=== PATIENT | female | born 1955 | race Caucasian/White ===

== ENCOUNTER → 2016-04-24 | Outpatient (CLI) | payer OTHER ==
--- NOTE | 2016-04-24 21:24 | WWHP ---
DATE OF SERVICE: 04/24/2016. CHIEF COMPLAINT: Patient is here for her routine gynecologic exam and mammogram. HPI: This is a 61-year-old G3, P2-0-1-2 with an LMP of approximately 1979. She is status post VANE in 1979 for benign reasons. She also had later BSO for benign reasons. She is without gynecologic complaints. PAST MEDICAL HISTORY: Hypothyroidism, chronic hypertension, seasonal allergies, anxiety, gastroesophageal reflux disease and elevated cholesterol. MEDICATIONS: 1. Hydrochlorothiazide 25 mg daily. 2. Levothyroxine 75 mcg daily. 3. Nexium 40 mg daily. 4. Fluoxetine 20 mg b.i.d. 5. Atorvastatin 40 mg q.h.s. 6. Lorazepam 0.5 mg q.h.s. 7. Aspirin 81 mg daily. 8. Vitamin D 1000 units daily. ALLERGIES: No known drug allergies. PAST SURGICAL HISTORY: VANE around 1979 later BSO in 1989. She also had about 3 other laparotomies for ovarian cysts which were benign. She also appendectomy done at one of these laparotomies. Also hernia repair in the past, colonoscopy with upper endoscopy around 2012. Past OB history: 2 vaginal deliveries and one spontaneous . Past [employer] history: She was once told she had HPV and this was detected on a Pap smear. This was approximately 1996. She had no other history of STDs and did have a long history of ovarian cysts and is status post VANE and later BSO. SOCIAL HISTORY: She quit smoking in her 30s. She denies alcohol and drug use. She has been since 2004 and this is her third marriage. She does not work outside the home at this time. FAMILY HISTORY: Mother had breast cancer and lung cancer. Father had lung cancer. Grandmother had gastric cancer. Mother also had heart disease. REVIEW OF SYSTEMS: She has lost about 18 pounds with diet and exercise and goes to weight watchers. She denies respiratory, cardiac, or GI problems. PHYSICAL EXAM: Blood pressure 111/76. Height 5 feet 0 inches. Weight 174 pounds. Temperature 97.6, pulse 72. This a well-developed, well-nourished white female who is alert and oriented x3 in no acute distress. HEENT is within normal limits. NECK: Supple without mass or thyromegaly. CHEST AND LUNGS: Clear to auscultation. HEART: Regular rate and rhythm. Breasts are without mass or discharge. Axillary exam is negative for adenopathy. BACK: Negative for CVA tenderness. ABDOMEN: Soft and there is minimal right lower quadrant tenderness. The patient states that area has always been tender for many years. She believes she had a mesh placed in that area for hernia. There are no palpable masses. PELVIC EXAM: External genitalia reveals mild to moderate atrophy without lesions. Vagina reveals mild to moderate atrophy without lesions. There is no evidence of prolapse. Bimanual exam is negative for mass or tenderness. Rectovaginal exam negative for mass or tenderness and is negative for occult blood. EXTREMITIES: Nontender. IMPRESSION: 1. A 61-year-old menopausal female, status post total abdominal hysterectomy and later BSO for benign reasons with normal gynecologic exam. 2. Minimal right lower quadrant tenderness, which has been there for many years according to the patient with no other significant physical findings. With her history of numerous surgeries and hernia repair, this may be related to some scar tissue. There are no palpable masses on exam. PLAN: 1. Pap smears have been discontinued. 2. Self-breast examination was discussed. 3. Mammogram will be done today. 4. Osteoporosis prevention was discussed. I have recommended bone density screening. She thinks she may have had this done in the past and will be checking with Dr. Toussaint. If this has not been done or if it has been many years, she will have this done next year when she returns. 5. She was instructed to call if she is having worsening right lower quadrant pains or tenderness. 6. She will return in one year.
--- NOTE | 2016-04-25 08:02 | MM ---
Reason for exam: screening (asymptomatic). Last mammogram was performed 3 years and 3 months ago. History: Patient is postmenopausal. Family history of breast cancer in mother. Physical Findings: A clinical breast exam by your physician is recommended on an annual basis and results should be correlated with mammographic findings. MG Screening Mammo w CAD Bilateral CC and MLO view(s) were taken. Prior study comparison: January 27, 2013, bilateral digital screening mammo w/CAD. December 10, 2006, mammogram, performed at [facility]. The breast tissue is almost entirely fat. Finding: There are typically benign round calcifications in the right breast. There is no discrete abnormality. ASSESSMENT: Negative, BI-RAD 1 RECOMMENDATION: Routine screening mammogram of both breasts in 1 year.
== END | disposition home or self-care (01) ==
LOC: WWCWWP 10:17
PROVIDERS: ATTEND Obstetrics & Gynecology
DX: Z12.31 Encounter for screening mammogram for malignant neoplasm of breast (principal)

== ENCOUNTER → 2017-09-11 | Outpatient (CLI) | payer OTHER ==
--- NOTE | 2017-09-13 08:58 | MM ---
Reason for exam: screening (asymptomatic). Last mammogram was performed 1 year and 5 months ago. History: Patient is postmenopausal. Family history of breast cancer in mother. Physical Findings: A clinical breast exam by your physician is recommended on an annual basis and results should be correlated with mammographic findings. MG Screening Mammo w CAD Bilateral CC and MLO view(s) were taken. Prior study comparison: April 24, 2016, bilateral MG screening mammo w CAD. January 27, 2013, bilateral digital screening mammo w/CAD. There are scattered fibroglandular densities. No suspicious abnormality. No significant changes when compared with prior studies. ASSESSMENT: Negative, BI-RAD 1 RECOMMENDATION: Routine screening mammogram of both breasts in 1 year.
== END | disposition home or self-care (01) ==
LOC: RADMAMWWP 16:14
PROVIDERS: ATTEND Family Medicine
DX: Z12.31 Encounter for screening mammogram for malignant neoplasm of breast (principal)
CPT/HCPCS: 77067

== ENCOUNTER → 2017-09-26 | Outpatient (CLI) | payer OTHER ==
--- NOTE | 2017-09-26 11:20 | US ---
EXAMINATION TYPE: US abdomen complete DATE OF EXAM: 09/26/2017 COMPARISON: None CLINICAL HISTORY: R10.9 ABD.PAIN. epigastric pain, NPO EXAM MEASUREMENTS: Liver Length: 13.7 cm Gallbladder Wall: 0.2 cm CBD: 0.4 cm CHD: 0.4 cm Spleen: 9.7 cm Right Kidney: 8.9 x 5.0 x 4.9 cm Left Kidney: 9.6 x 5.2 x 5.3 cm Pancreas: Unremarkable Liver: Echogenic and slightly heterogenous. This most commonly relates to hepatic steatosis and limi ts evaluation for underlying hepatic masses Gallbladder: wnl Evidence for sonographic León's sign: neg CBD: wnl CHD: wnl Spleen: wnl Right Kidney: wnl Left Kidney: wnl Upper IVC: wnl Abd Aorta: Portions obscured by overlying bowel gas. Aorta visualized appears wnl The intrahepatic portion of the IVC and proximal abdominal aorta are within normal limits. There is no evidence of cholelithiasis. Common bile duct is unremarkable. The visualized portions of the nicholas creas are homogenous. The spleen is unremarkable. Kidneys are symmetric and free of hydronephrosis. No renal lesions are seen. IMPRESSION: 1. No sonographic evidence of cholelithiasis or acute cholecystitis. 2. Sonographic findings most commonly related to hepatic steatosis. Correlate with liver function mariusz ts.
== END | disposition home or self-care (01) ==
LOC: RADUSWWP 09:05
PROVIDERS: ATTEND Family Medicine
DX: R10.9 Unspecified abdominal pain (principal)
CPT/HCPCS: 76700

== ENCOUNTER → 2017-10-24 | Outpatient (CLI) | payer OTHER ==
--- NOTE | 2017-10-24 10:23 | NM ---
EXAMINATION TYPE: NM hepatobiliary w EF DATE OF EXAM: 10/24/2017 COMPARISON: Prior exam 03/23/2014 HISTORY: Right upper quadrant pain TECHNIQUE: After the intravenous administration of 5.03 mCi Tc 99m Mebrofenin hepatobiliary scintigra phy is performed. Immediate images post injection. FINDINGS: There is satisfactory initial accumulation of tracer by the liver. The gallbladder is visualized wit hin 12 minutes. The small bowel activity is noted within 30 minutes. At one hour 8 ounces of oral e nsure plus is given to mimic CCK and gallbladder ejection fraction is calculated at 42 %, in the norm al range. Therefore there is no scintigraphic evidence of cystic or common bile duct obstruction to suggest acute cholecystitis or gallbladder dyskinesia. IMPRESSION: Exam is within normal limits.
== END | disposition home or self-care (01) ==
LOC: RADNMMAIN 06:38
PROVIDERS: ATTEND Family Medicine
DX: R10.11 Right upper quadrant pain (principal)
CPT/HCPCS: 78226; A9537

== ENCOUNTER 2017-12-13 09:48 | Day surgery (SDC) | payer OTHER ==
[2017-12-11 11:40] VITALS: BMI 35.9
[~2017-12-13 09:48] MED LIST: LACTATED RINGERS 1,000 ML IV SCH; LIDOCAINE 1% 20 ML VIAL (10MG/ML) FOR IV START INTRADERMA PRN
[2017-12-13 10:29] VITALS: RESP 16; TEMP 98.8
[2017-12-13] MEDS ORDERED: LIDOCAINE 1% INJ 10MG/ML (20 ML MDV) ONE (10:35)
[2017-12-13] MEDS ORDERED: PROPOFOL 10 MG/ML 20 ML VIAL IV ONE (10:35)
--- NOTE | 2017-12-13 10:45 | P.GSHP ---
History of Present Illness H&P Date: 12/13/17 CHIEF COMPLAINT: GERD and colon screen HISTORY OF PRESENT ILLNESS: The patient is a 62-year-old female who presents with gastroesophageal reflux disease and need for colon screen. Upper and lower endoscopy were offered for further evaluation and management. PAST MEDICAL HISTORY: Please see list. PAST SURGICAL HISTORY: Please see list. MEDICATIONS: Please see list. ALLERGIES: Please see list. SOCIAL HISTORY: No illicit drug use FAMILY HISTORY: No reports of Crohn disease or ulcerative colitis. REVIEW OF ORGAN SYSTEMS: CONSTITUTIONAL: No reports of fevers or chills. GI: Denies any blood in stools or constipation. PHYSICAL EXAM: VITAL SIGNS: Stable GENERAL: Well-developed pleasant in no acute distress. HEENT: No scleral icterus. Extraocular movements grossly intact. Moist buccal mucosa. NECK: Supple without lymphadenopathy. CHEST: Unlabored respirations. Equal bilateral excursions. CARDIOVASCULAR: Regular rate and rhythm. Distal 2+ pulses. ABDOMEN: Soft, nondistended. MUSCULOSKELETAL: No clubbing, cyanosis, or edema. ASSESSMENT: 1. Gastroesophageal reflux disease 2. Colon screen. PLAN: 1. Recommend proceeding with an upper and lower endoscopy Past Medical History Past Medical History: GERD/Reflux, Hyperlipidemia, Hypertension, Sleep Apnea/ CPAP/BIPAP, Thyroid Disorder History of Any Multi-Drug Resistant Organisms: None Reported Past Surgical History: Hernia Repair Additional Past Surgical History / Comment(s): OVARIAN CYSTECTOMY. COLONOSCOPY/ EGD Past Anesthesia/Blood Transfusion Reactions: Postoperative Nausea & Vomiting ( PONV) Smoking Status: Former smoker - Past Family History Mother Family Medical History: Cancer Father Family Medical History: Cancer Medications and Allergies Home Medications Medication Instructions Recorded Confirmed Type Aspirin [Adult Low Dose Aspirin EC] 81 mg PO HS 12/11/17 12/11/17 History Atorvastatin [Lipitor] 40 mg PO HS 12/11/17 12/11/17 History Cholecalciferol [Vitamin D3] 1,000 unit PO DAILY 12/11/17 12/11/17 History FLUoxetine HCL [PROzac] 20 mg PO BID 12/11/17 12/11/17 History Fish Oil/Dha/Epa [Fish Oil 1,200 1 each PO DAILY 12/11/17 12/11/17 History mg Fish Oil] Hydrochlorothiazide [Hydrodiuril] 25 mg PO DAILY 12/11/17 12/11/17 History LORazepam [Ativan] 0.5 mg PO HS 12/11/17 12/11/17 History Levothyroxine Sodium [Tirosint] 75 mcg PO DAILY 12/11/17 12/11/17 History Pantoprazole Sodium [Protonix] 40 mg PO DAILY 12/11/17 12/11/17 History Allergies Allergy/AdvReac Type Severity Reaction Status Date / Time No Known Allergies Allergy Verified 12/11/17 11:22 Surgical - Exam Vital Signs Temp Pulse Resp BP Pulse Ox 98.8 F 79 16 149/83 96 12/13/17 10:19 12/13/17 10:19 12/13/17 10:19 12/13/17 10:19 12/13/17 10:19
--- NOTE | 2017-12-13 11:19 | P.PCN ---
Date of Procedure: 12/13/17 Description of Procedure: PREOPERATIVE DIAGNOSIS: Colonoscopy screening. POSTOPERATIVE DIAGNOSIS: Colonoscopy screening. OPERATION: Colonoscopy to the ileocecal valve and appendiceal orifice. Colonoscopy with random cold forceps biopsies. SURGEON: Jacki Sharpe MD. ANESTHESIA: MAC. INDICATIONS: The patient is a 62-year-old female who presents for colonoscopy screening. Last colonoscopy over 10 years ago. Benefits and risks were described and informed consent was obtained. DESCRIPTION OF PROCEDURE: The patient had undergone Gatorade, MiraLAX and Dulcolax prep. She had been brought into the operating room and laid in the left lateral decubitus position. After adequate intravenous sedation, the rectum was examined with 2% lidocaine jelly. No external hemorrhoids were encountered. The rectal tone was within normal limits. No lesions were palpated in the rectal vault. An Olympus colonoscope was advanced until the ileocecal valve and appendiceal orifice were clearly viewed. The prep was excellent with clear visualization of the mucosal folds. The scope was removed with visualization of each mucosal fold. No scattered diverticulosis was encountered. No colonic polyps were found. Random biopsies were obtained for collagenous colitis. Retroflexion of the scope demonstrated no internal hemorrhoids. The colon was desufflated. The patient had tolerated the procedure well. Withdrawal time was over 6 minutes. FINDINGS: No internal hemorrhoids Random biopsies were obtained for collagenous colitis. No external prolapsed hemorrhoids. No arteriovenous malformations. No adenomatous polyps. RECOMMENDATIONS: Lower endoscopy in 10 years, 2027
--- NOTE | 2017-12-13 11:21 | P.PCN ---
Date of Procedure: 12/13/17 Description of Procedure: PREOPERATIVE DIAGNOSIS: Gastroesophageal reflux disease. H. pylori gastritis POSTOPERATIVE DIAGNOSIS: Gastroesophageal reflux disease. H. pylori gastritis OPERATION: Esophagogastroduodenoscopy with biopsies along antrum. SURGEON: Jacki Sharpe MD ANESTHESIA: MAC. INDICATIONS: The patient is a 62-year-old female who presents with a history of reflux disease. Benefits and risks of the procedure were described. Informed consent was obtained. DESCRIPTION: The patient was brought into the endoscopy suite and laid in the left lateral decubitus position. An Olympus gastroscope was passed along the posterior oropharynx down to the distal esophagus where the squamocolumnar junction was encountered at 36 cm from the incisors. The stomach was entered and no bile reflux was found. Additional findings are listed below. Biopsies with cold forceps were obtained of the antrum. The first through third portion of the duodenum was examined and unremarkable. Retroflexion of the scope confirmed Hill grade 2 lower esophageal valve. The squamocolumnar junction demonstrated LA grade A erosive esophagitis. The stomach was desufflated. The patient tolerated the procedure well. FINDINGS: Squamocolumnar junction 36 cm from the incisors. Diaphragmatic hiatus at 36 cm. Hill grade 2 lower esophageal valve. LA grade A erosive esophagitis. No active duodenitis. Chronic gastritis RECOMMENDATIONS: Upper endoscopy as needed. Plan - Discharge Summary New Discharge Prescriptions: No Action Cholecalciferol [Vitamin D3] 1,000 unit PO DAILY Atorvastatin [Lipitor] 40 mg PO HS Aspirin [Adult Low Dose Aspirin EC] 81 mg PO HS Pantoprazole Sodium [Protonix] 40 mg PO DAILY Levothyroxine Sodium [Tirosint] 75 mcg PO DAILY LORazepam [Ativan] 0.5 mg PO HS Hydrochlorothiazide [Hydrodiuril] 25 mg PO DAILY FLUoxetine HCL [PROzac] 20 mg PO BID Fish Oil/Dha/Epa [Fish Oil 1,200 mg Fish Oil] 1 each PO DAILY Discharge Medication List Aspirin [Adult Low Dose Aspirin EC] 81 mg PO HS 12/11/17 [History] Atorvastatin [Lipitor] 40 mg PO HS 12/11/17 [History] Cholecalciferol [Vitamin D3] 1,000 unit PO DAILY 12/11/17 [History] FLUoxetine HCL [PROzac] 20 mg PO BID 12/11/17 [History] Fish Oil/Dha/Epa [Fish Oil 1,200 mg Fish Oil] 1 each PO DAILY 12/11/17 [History] Hydrochlorothiazide [Hydrodiuril] 25 mg PO DAILY 12/11/17 [History] LORazepam [Ativan] 0.5 mg PO HS 12/11/17 [History] Levothyroxine Sodium [Tirosint] 75 mcg PO DAILY 12/11/17 [History] Pantoprazole Sodium [Protonix] 40 mg PO DAILY 12/11/17 [History]
[2017-12-13 11:27] VITALS: BP 139/74; PULSE 66
== END 2017-12-13 12:07 | disposition home or self-care (01) ==
LOC: ORWHC2ENDO 09:48
PROVIDERS: ATTEND Surgery Plastic and Reconstructive Surgery
DX: Z12.11 Encounter for screening for malignant neoplasm of colon (principal); K29.50 Unspecified chronic gastritis without bleeding; E78.5 Hyperlipidemia, unspecified; K21.0 Gastro-esophageal reflux disease with esophagitis; I10 Essential (primary) hypertension; E07.9 Disorder of thyroid, unspecified; Z87.891 Personal history of nicotine dependence; Z79.82 Long term (current) use of aspirin; Z79.899 Other long term (current) drug therapy; Z79.890 Hormone replacement therapy; G47.33 Obstructive sleep apnea (adult) (pediatric); Z99.89 Dependence on other enabling machines and devices
CPT/HCPCS: 88305; 45380; 43239; J2001; J2704

== ENCOUNTER → 2017-12-16 | Outpatient (CLI) | payer OTHER ==
--- NOTE | 2017-12-16 15:44 | CT ---
EXAMINATION TYPE: CT abdomen pelvis w con DATE OF EXAM: 12/16/2017 HISTORY: Patient complains of epigastric pain, diarrhea, and nausea. Diverticulitis per order. CT DLP: 1486mGycm Automated Exposure Control for Dose Reduction was Utilized. CONTRAST: CT scan of the abdomen and pelvis is performed with IV Contrast, patient injected with 100 mL of Isov ue 300. COMPARISON: None FINDINGS: LUNG BASES: No significant abnormality is appreciated. LIVER/GB: There are 2 subcentimeter low dense lesions scattered throughout the liver that are too sma ll to further characterize per presumed benign. PANCREAS: No significant abnormality is seen. SPLEEN: Small splenule is seen splenic hilum coronal image 65. ADRENALS: No significant abnormality is seen. KIDNEYS: No significant abnormality is seen. BOWEL: Oral contrast reaches level of the hepatic flexure. There is no suspicious small or large helen l dilatation seen mild wall thickening throughout the sigmoid colon is present through the rectum. Th is is strongly favor product of nondistention but a mild colitis should be excluded clinically. No si gnificant diverticulosis or acute diverticulitis identified. UTERUS/ADNEXA: Uterus is surgically absent or markedly atrophic. LYMPH NODES: No greater than 1cm abdominal or pelvic lymph nodes are appreciated. OSSEOUS STRUCTURES: Moderate spurring in the visualized mid thoracic spine. OTHER: Mild calcified plaque of aorta. IMPRESSION: No bowel obstruction is seen. No CT evidence for significant diverticulosis or acute dive rticulitis.
== END | disposition home or self-care (01) ==
LOC: RADCTMAIN 12:57
PROVIDERS: ATTEND Surgery Plastic and Reconstructive Surgery
DX: K57.32 Diverticulitis of large intestine without perforation or abscess without bleeding (principal)
CPT/HCPCS: 74177; Q9967

== ENCOUNTER → 2018-07-16 | Outpatient (CLI) | payer OTHER ==
--- NOTE | 2018-07-16 10:42 | XR ---
EXAMINATION TYPE: XR abdomen 1V DATE OF EXAM: 07/16/2018 10:36 AM CLINICAL HISTORY: Lower abdominal pain with right flank pain. TECHNIQUE: Two supine KUB images of the abdomen are obtained. COMPARISON: CT abdomen and pelvis December 16, 2017. FINDINGS: Scattered gas is seen in non-distended small bowel loops. Gas and fecal material is seen in non-distended colon. Scattered pelvic phleboliths are redemonstrated bilaterally. There is transitio nal-type vertebra lumbosacral junction is redemonstrated. No definitive nephrolithiasis. Lung bases a re clear. Mild multilevel spurring in the spine is present. IMPRESSION: Overall nonobstructive bowel gas pattern. No definitive nephrolithiasis.
== END | disposition home or self-care (01) ==
LOC: RADXRYALE 10:26
PROVIDERS: ATTEND Physician Assistant Medical
DX: M54.5 Low back pain (principal); R10.817 Generalized abdominal tenderness
CPT/HCPCS: 74018

== ENCOUNTER → 2018-08-20 | Outpatient (CLI) | payer OTHER ==
--- NOTE | 2018-08-20 12:23 | XR ---
EXAMINATION TYPE: XR lumbosacral spine min 4V DATE OF EXAM: 08/20/2018 COMPARISON: NONE HISTORY: 63-year-old female low back pain TECHNIQUE: 5 views FINDINGS: Facet arthropathy lower lumbar spine. Mild to moderate disc height loss at L5-S1 and mild d irect remainder of the lumbar spine. Vertebral body heights are preserved and alignment is maintained . IMPRESSION: 1. Mild multilevel degenerative disc disease with more mild to moderate disc height loss at L5-S1. 2. Facet arthropathy lower lumbar spine. 3. No vertebral compression collapse or malalignment.
== END | disposition home or self-care (01) ==
LOC: RADXRYALE 10:29
PROVIDERS: ATTEND Physician Assistant Medical
DX: M51.37 Other intervertebral disc degeneration, lumbosacral region (principal); M46.96 Unspecified inflammatory spondylopathy, lumbar region
CPT/HCPCS: 72110

== ENCOUNTER → 2019-03-09 | Outpatient (CLI) | payer OTHER ==
--- NOTE | 2019-03-10 08:33 | USB ---
Reason for exam: clinical finding. History: Patient is postmenopausal. Family history of breast cancer in mother. US Breast Limited LT Left limited breast ultrasound including focal area of concern, retroareolar and axilla demonstrates no cystic or solid lesion seen. No suspicious sonographic finding. These results were verbally communicated with the patient and result sheet given to the patient on 03/09/19. ASSESSMENT: Negative, BI-RAD 1 RECOMMENDATION: Routine screening mammogram of both breasts in 1 year.
== END | disposition home or self-care (01) ==
LOC: RADMAMWWP 13:37
PROVIDERS: ATTEND Family Medicine
DX: N64.4 Mastodynia (principal)

== ENCOUNTER → 2019-03-09 | Outpatient (CLI) | payer OTHER ==
--- NOTE | 2019-03-09 15:25 | US ---
EXAMINATION TYPE: US thyroid st tissue head/neck DATE OF EXAM: 03/09/2019 COMPARISON: NONE CLINICAL HISTORY: R499 E0.9. has been on thyroid meds, hoarse throat GLAND SIZE: Right Lobe: 3.3 x 0.8 x 1.3 cm Overall Parenchyma: homogenous Left Lobe: 2.7 x 1.3 x 0.9 cm Overall Parenchyma: homogeneous Isthmus Thickness: 0.4 cm NODULES RIGHT: # of nodules measured on right: 0 LEFT: # of nodules measured on left: 0 ISTHMUS: # of nodules measured in the isthmus: 0 Bilateral neck scanned, no evidence of lymphadenopathy. IMPRESSION: Atrophic but homogeneous thyroid gland. No focal nodule.
--- NOTE | 2019-03-10 08:30 | MM ---
Reason for exam: additional evaluation requested from prior study. Last mammogram was performed 1 year and 6 months ago. History: Patient is postmenopausal. Family history of breast cancer in mother. Physical Findings: Nurse did not find any significant physical abnormalities on exam. MG 3D Diag Mammo W/Cad CARMENZA Bilateral CC and MLO view(s) were taken. Prior study comparison: September 11, 2017, bilateral MG screening mammo w CAD. April 24, 2016, bilateral MG screening mammo w CAD. There are scattered fibroglandular densities. No suspicious abnormality. No significant new findings when compared with previous films. These results were verbally communicated with the patient and result sheet given to the patient on 03/09/19. ASSESSMENT: Negative, BI-RAD 1 RECOMMENDATION: Routine screening mammogram of both breasts in 1 year.
== END | disposition home or self-care (01) ==
LOC: RADUSWWP 13:30
PROVIDERS: ATTEND Physician Assistant Medical
DX: Z12.31 Encounter for screening mammogram for malignant neoplasm of breast (principal); E03.4 Atrophy of thyroid (acquired); R49.9 Unspecified voice and resonance disorder
CPT/HCPCS: 76536; 77062; 77066

== ENCOUNTER → 2020-02-11 | Outpatient (CLI) | payer OTHER ==
--- NOTE | 2020-02-11 16:14 | XR ---
EXAMINATION TYPE: XR Hip Complete RT DATE OF EXAM: 02/11/2020 CLINICAL HISTORY: Right hip pain for 2 months. TECHNIQUE: AP and frogleg views of the right hip are obtained. COMPARISON: CT abdomen and pelvis December 16, 2017. FINDINGS: There is no acute fracture/dislocation evident in the right hip. Moderate axial joint spac e loss in the right hip with mild to moderate acetabular spurring is redemonstrated. Scattered small pelvic phleboliths incidentally noted. IMPRESSION: As above. No significant interval change or progression.
== END | disposition home or self-care (01) ==
LOC: RADXRYALE 15:46
PROVIDERS: ATTEND Physician Assistant
DX: M25.751 Osteophyte, right hip (principal); M25.851 Other specified joint disorders, right hip
CPT/HCPCS: 73502

== ENCOUNTER → 2021-06-02 | Outpatient (CLI) | payer MEDICARE, OTHER ==
[~2021-06-02] MED LIST changes: +BEBTELOVIMAB (EUA) 175 MG/2 ML VIAL IV ONE; -LACTATED RINGERS 1,000 ML IV SCH; -LIDOCAINE 1% 20 ML VIAL (10MG/ML) FOR IV START INTRADERMA PRN; +SODIUM CHLORIDE 0.9% 500 ML 500 ML in EMPTY BAG 1 BAG IV PRN
[2021-06-02 14:11] VITALS: RESP 16; TEMP 98.1
[2021-06-02 15:12] VITALS: BP 127/75; PULSE 74
== END | disposition home or self-care (01) ==
LOC: PROCWHC3 13:39
PROVIDERS: ATTEND Family Medicine
DX: U07.1 COVID-19 (principal)
CPT/HCPCS: Q0222; M0222; 96374

== ENCOUNTER → 2021-12-27 | Outpatient (CLI) | payer MEDICARE ==
--- NOTE | 2021-12-28 08:44 | MM ---
Reason for Exam: Screening (asymptomatic). Last screening mammogram was performed 12 month(s) ago. Patient History: Menarche at age 12. First Full-Term at age 20. Left ovary removed at age 23. Right ovary removed at age 23. Hysterectomy at age 23. Postmenopausal. Estrogen for 2 months. Patient used Progesterone for 2 years. Patient used Hormonal Contraceptives for 2 years. Maternal aunt had breast cancer. Mother had breast cancer. Risk Values: Usmi 5 year model risk: 3.4%. NCI Lifetime model risk: 12.4%. Prior Study Comparison: 09/11/2017 Bilateral Screening Mammogram, [facility]. 03/09/2019 Bilateral Diagnostic Mammogram, [facility]. 12/27/2020 Bilateral Screening Mammogram, [facility]. Tissue Density: There are scattered fibroglandular densities. Findings: Analyzed By CAD. There is no suspicious group of microcalcifications or new suspicious mass in either breast. No significant change from prior exams. Overall Assessment: Negative, BI-RAD 1 Management: Screening Mammogram of both breasts in 1 year. A clinical breast exam by your physician is recommended on an annual basis and results should be correlated with mammographic findings. Electronically signed and approved by: Dank Ramos D.O.
== END | disposition home or self-care (01) ==
LOC: RADMAMWWP 14:05
PROVIDERS: ATTEND Family Medicine
DX: Z12.31 Encounter for screening mammogram for malignant neoplasm of breast (principal)
CPT/HCPCS: 77063; 77067

== ENCOUNTER → 2022-01-05 | Outpatient (CLI) | payer MEDICARE ==
--- NOTE | 2022-01-05 15:07 | US ---
EXAMINATION TYPE: US kidneys/renal and bladder DATE OF EXAM: 01/05/2022 COMPARISON: NONE CLINICAL HISTORY: PAINFUL MICTURATION R30.9. Hematuria. EXAM MEASUREMENTS: Right Kidney: 9.6 x 5.2 x 4.4 cm Left Kidney: 9.2 x 5.6 x 5.2 cm Right Kidney: No hydronephrosis or masses seen Left Kidney: No hydronephrosis or masses seen Bladder: wnl Bilateral Jets seen: Yes There is no evidence for hydronephrosis at this point in time. No nephrolithiasis is seen. No kalani s are identified. The urinary bladder is anechoic. Bilateral ureteral jets are seen. IMPRESSION: No discrete abnormality is appreciated.
== END | disposition home or self-care (01) ==
LOC: RADUSWWP 14:07
PROVIDERS: ATTEND Family Medicine
DX: R30.9 Painful micturition, unspecified (principal)
CPT/HCPCS: 76770

== ENCOUNTER → 2023-02-12 | Outpatient (CLI) | payer MEDICARE ==
[2023-02-12 13:11] VITALS: BP 142/84; PULSE 77; RESP 17; TEMP 97.9
--- NOTE | 2023-02-12 13:52 | P.HPOB ---
History of Present Illness H&P Date: 02/12/23 Chief Complaint: The patient is here for her routine gynecologic exam and ma mmogram. This is a 67-year-old 012 with an LMP of 1979. She is status post VANE and later BSO for benign reasons. She thinks she has had about 3 or 4 urinary tract infections over the past year and she has an appointment to see Dr. Torres, the urologist. She has had some neurologic issues in the past. She is otherwise without complaints. Review of Systems She has been about 18 pounds over the past 6 years. She denies respiratory or cardiac problems. GI: She recently has had some intermittent loose stools. Past Medical History Past Medical History: GERD/Reflux, Hyperlipidemia, Hypertension, Thyroid Disorder Additional Past Medical History / Comment(s): Hypothyroidism, seasonal ALLERGIES. 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 She has no other history of STDs in the past. History of Any Multi-Drug Resistant Organisms: None Reported Past Surgical History: Hernia Repair, Hysterectomy Additional Past Surgical History / Comment(s): CYST ON OVARIES REMOVED. VANE in 1979 and BSO in 1989. Multiple laparotomies for ovarian cysts which were benign. Colonoscopy with upper endoscopy around 2012. Past Anesthesia/Blood Transfusion Reactions: No Reported Reaction Past Psychological History: Anxiety (PHQ 2 score was 1 which was her at low risk for significant depression at this time.) Smoking Status: Former smoker Past Alcohol Use History: None Reported Additional Past Alcohol Use History / Comment(s): Quit smoking around 1984. Past Drug Use History: None Reported Additional History: She is been since 2020 and this is her fourth marriage. - Past Family History Mother Family Medical History: Cancer Additional Family Medical History / Comment(s): Breast and lung cancer. Heart disease. Father Family Medical History: Cancer Additional Family Medical History / Comment(s): Lungs cancer. Medications and Allergies Home Medications Medication Instructions Recorded Confirmed Type Aspirin [Adult Low Dose Aspirin EC] 81 mg PO HS 12/11/17 02/12/23 History Atorvastatin [Lipitor] 40 mg PO HS 12/11/17 02/12/23 History Cholecalciferol [Vitamin D3] 1,000 unit PO DAILY 12/11/17 02/12/23 History FLUoxetine HCL [PROzac] 20 mg PO BID 12/11/17 02/12/23 History Fish Oil/Dha/Epa [Fish Oil 1,200 1 each PO DAILY 12/11/17 02/12/23 History mg Fish Oil] LORazepam [Ativan] 0.5 mg PO HS 12/11/17 02/12/23 History Levothyroxine Sodium [Tirosint] 75 mcg PO DAILY 12/11/17 02/12/23 History Pantoprazole Sodium [Protonix] 40 mg PO DAILY 12/11/17 02/12/23 History hydroCHLOROthiazide [Hydrodiuril] 25 mg PO DAILY 12/11/17 02/12/23 History Metoprolol Succinate [Metoprolol 25 mg PO DAILY 02/12/23 02/12/23 History Succinate ER] Allergies Allergy/AdvReac Type Severity Reaction Status Date / Time No Known Allergies Allergy Verified 02/12/23 12:50 Exam Vital Signs Temp Pulse Resp BP Pulse Ox 02/12/23 12:53 97.9 F 77 17 142/84 96 Intake and Output 02/11/23 02/12/23 02/12/23 22:59 06:59 14:59 Other: Weight 87.09 kg Height 5 feet 0 inches, weight 192 pounds, BMI 37.5. This is a well-developed well-nourished white female who is alert and oriented times 3 in no acute distress. HEENT: Within normal limits. NECK: Supple without mass or thyromegaly. CHEST AND LUNGS: Clear to auscultation. HEART: Regular rate and rhythm. BREASTS: Are without mass or discharge. AXILLARY EXAM: Negative for adenopathy. BACK: Negative for CVA tenderness. ABDOMEN: Soft, nontender, without palpable masses. PELVIC EXAM: External genitalia appears normal with mild atrophy. Vagina appears normal with mild atrophy. There is no evidence of prolapse. Bimanual examination is negative for mass or tenderness. RECTAL EXAM: Rectovaginal exam is negative for mass or tenderness and is negative for occult blood. EXTREMITIES: Nontender. IMPRESSION: 1. 67-year-old menopausal female status post VANE and later BSO for benign reasons, with normal gynecologic exam. 2. Frequent urinary tract infections during the past year. PLAN: 1. Pap smears have been discontinued. 2. Self breast awareness was discussed with the patient. We have also discussed symptoms associated with inflammatory breast cancer. 3. Screening mammogram will be done today. 4. Osteoporosis prevention was discussed. I have stressed the importance of adequate calcium, vitamin D and regular exercise. Recommended amounts of calcium and vitamin D were also discussed. She believes she had a bone density test done and she believes it was normal. She will check her records to see when this was last done. If it has been more than 5 years, have recommended that she repeat the bone density test. She can do it next year with her next well woman examination, if she is due for it. 5. She believes she may have had a colonoscopy done more recently in 2012. She will discuss this with her PCP to see when this is due, or if she continues and alternatives such as Cologuard. 6. We have had a long discussion regarding frequent urinary tract infections. We have discussed the importance of avoiding after sexual intercourse as well as trying to empty her bladder as completely as possible when she does void. We've discussed the importance of giving herself enough time and emptying by relaxing and not pushing. We have discussed other options if she continues to have recurrent urinary tract infections such as the use of vaginal estrogen cream. She will try to determine if her urinary tract infections are related to sexual intercourse. We also discussed the option of using a low-dose Macrodantin after intercourse as a preventative measure, if she continues to have recurrent urinary tract infections. She has an upcoming appointment with Dr. Torres, the urologist regarding these urinary tract infections. 7. She was advised to return in one year for her annual well woman exam.
--- NOTE | 2023-02-13 15:46 | MM ---
Reason for Exam: Screening (asymptomatic). Last mammogram was performed 1 year(s) and 2 month(s) ago. Patient History: Menarche at age 12. First Full-Term at age 20. Left ovary removed at age 23. Right ovary removed at age 23. Hysterectomy at age 23. Postmenopausal. Estrogen for 2 months. Patient used Progesterone for 2 years. Patient used Hormonal Contraceptives for 2 years. Maternal aunt had breast cancer. Mother had breast cancer. Risk Values: Sumi 5 year model risk: 3.4%. NCI Lifetime model risk: 12.0%. Prior Study Comparison: 03/09/2019 Bilateral Diagnostic Mammogram, [facility]. 12/27/2020 Bilateral Screening Mammogram, [facility]. 12/27/2021 Bilateral MG 3D screening mammo w/cad, [facility]. Tissue Density: There are scattered fibroglandular densities. Findings: Analyzed By CAD. Pattern appears symmetrical and stable. No significant interval change is evident. No suspicious groups of microcalcifications, spiculated or lobular masses, architectural distortion or other secondary signs of malignancy are mammographically apparent. Overall Assessment: Benign, BI-RAD 2 Management: Screening Mammogram of both breasts in 1 year. A negative mammogram report should not preclude additional follow up of suspicious palpable abnormalities. Patient should continue monthly self breast exam. A clinical breast exam by your physician is recommended on an annual basis and results should be correlated with mammographic findings. Electronically signed and approved by: Bernard Wagner D.O. Radiologis
== END ==
LOC: WWCWWP 12:32
PROVIDERS: ATTEND Obstetrics & Gynecology
DX: Z12.31 Encounter for screening mammogram for malignant neoplasm of breast (principal); K21.9 Gastro-esophageal reflux disease without esophagitis; E78.5 Hyperlipidemia, unspecified; I10 Essential (primary) hypertension; E03.9 Hypothyroidism, unspecified; F41.9 Anxiety disorder, unspecified; Z90.710 Acquired absence of both cervix and uterus; Z87.891 Personal history of nicotine dependence; Z79.890 Hormone replacement therapy; Z87.440 Personal history of urinary (tract) infections; Z90.722 Acquired absence of ovaries, bilateral; Z79.899 Other long term (current) drug therapy; Z79.82 Long term (current) use of aspirin
CPT/HCPCS: 77063; 77067

== ENCOUNTER → 2024-09-01 | Outpatient (CLI) | payer MEDICARE ==
--- NOTE | 2024-09-01 11:29 | MM ---
Reason for Exam: Screening (asymptomatic). Last mammogram was performed 1 year(s) and 7 month(s) ago. Patient History: Menarche at age 12. First Full-Term at age 20. Left ovary removed at age 23. Right ovary removed at age 23. Hysterectomy at age 23. Postmenopausal. Estrogen for 2 months. Patient used Progesterone for 2 years. Patient used Hormonal Contraceptives for 2 years. Mother had breast cancer. Risk Values: Sumi 5 year model risk: 3.5%. NCI Lifetime model risk: 11.0%. Prior Study Comparison: 12/27/2020 Bilateral Screening Mammogram, [facility]. 12/27/2021 Bilateral MG 3D screening mammo w/cad, [facility]. 02/12/2023 Bilateral MG 3D screening mammo w/cad, [facility]. Tissue Density: The breasts are almost entirely fatty. Findings: Analyzed By CAD. There is no suspicious group of microcalcifications or new suspicious mass in either breast. Overall Assessment: Negative, BI-RAD 1 Management: Screening Mammogram of both breasts in 1 year. Further clinical management of patient's intermittent bilateral breast tenderness. See note below in regards to the patient's increased 5 year Sumi score. Patient should continue monthly self-breast exams. A clinical breast exam by your physician is recommended on an annual basis. This exam should not preclude additional follow-up of suspicious palpable abnormalities. Note on Sumi scores and lifetime risk: 1. A Sumi score greater than 3% is considered moderate risk. If this is the case, consider specialist referral to assess eligibility for a risk reducing agent. 2. If overall lifetime risk for the development of breast cancer is 20% or higher, the patient may qualify for future screening with alternating mammogram and breast MRI. [facility], , 09/01/2024 11:26 AM. Electronically signed and approved by: Laly Thompson M.D. Radiologist
== END | disposition home or self-care (01) ==
LOC: RADMAMWWP 08:50
PROVIDERS: ATTEND Family Medicine
DX: Z12.31 Encounter for screening mammogram for malignant neoplasm of breast (principal); R92.313 Mammographic fatty tissue density, bilateral breasts; Z78.0 Asymptomatic menopausal state; Z92.0 Personal history of contraception; Z80.3 Family history of malignant neoplasm of breast
CPT/HCPCS: 77063; 77067

== ENCOUNTER 2024-09-03 13:10 | Emergency (ER) | payer MEDICARE ==
--- NOTE | 2024-09-03 15:07 | ED ---
GI Bleed HPI - General Chief complaint: GI Bleed Stated complaint: blood in stool Time Seen by Provider: 09/03/24 14:49 Source: patient, RN notes reviewed Mode of arrival: ambulatory Limitations: no limitations - History of Present Illness Initial comments: This is a 69-year-old female who presents to the emergency department for rectal bleeding. States that she was recently put on a prednisone taper for a possible muscle strain in her lower back and legs and is scheduled to take the last dose today. Yesterday she started developing diarrhea and then as the day progressed she had bright red blood mixed with her stool. States that she has had about 6 bowel movements with blood in her stool. She has minor cramping in her lower abdomen and feels the constant urge to have a bowel movement. Denies any nausea or vomiting. Not taking any blood thinners. Denies any history of rectal bleeding in the past. - Related Data Home Medications Medication Instructions Recorded Confirmed Aspirin [Adult Low Dose Aspirin EC] 81 mg PO HS 12/11/17 02/12/23 Atorvastatin [Lipitor] 40 mg PO HS 12/11/17 02/12/23 Cholecalciferol [Vitamin D3] 1,000 unit PO DAILY 12/11/17 02/12/23 FLUoxetine HCL [PROzac] 20 mg PO BID 12/11/17 02/12/23 Fish Oil/Dha/Epa [Fish Oil 1,200 1 each PO DAILY 12/11/17 02/12/23 mg Fish Oil] LORazepam [Ativan] 0.5 mg PO HS 12/11/17 02/12/23 Levothyroxine Sodium [Tirosint] 75 mcg PO DAILY 12/11/17 02/12/23 Pantoprazole Sodium [Protonix] 40 mg PO DAILY 12/11/17 02/12/23 hydroCHLOROthiazide [Hydrodiuril] 25 mg PO DAILY 12/11/17 02/12/23 Metoprolol Succinate [Metoprolol 25 mg PO DAILY 02/12/23 02/12/23 Succinate ER] Allergies Allergy/AdvReac Type Severity Reaction Status Date / Time No Known Allergies Allergy Verified 02/12/23 12:50 Review of Systems ROS Statement: Those systems with pertinent positive or pertinent negative responses have been documented in the HPI. ROS Other: All systems not noted in ROS Statement are negative. Past Medical History Past Medical History: GERD/Reflux, Hyperlipidemia, Hypertension, Thyroid Disorder Additional Past Medical History / Comment(s): Hypothyroidism, seasonal ALLERGIES. 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 She has no other history of STDs in the past. History of Any Multi-Drug Resistant Organisms: None Reported Past Surgical History: Hernia Repair, Hysterectomy Additional Past Surgical History / Comment(s): CYST ON OVARIES REMOVED. VANE in 1979 and BSO in 1989. Multiple laparotomies for ovarian cysts which were benign. Colonoscopy with upper endoscopy around 2012. Past Anesthesia/Blood Transfusion Reactions: No Reported Reaction Past Psychological History: Anxiety Smoking Status: Former smoker Past Alcohol Use History: None Reported Past Drug Use History: None Reported - Past Family History Mother Family Medical History: Cancer Additional Family Medical History / Comment(s): Breast and lung cancer. Heart disease. Father Family Medical History: Cancer Additional Family Medical History / Comment(s): Lungs cancer. General Exam Limitations: no limitations General appearance: alert, in no apparent distress Head exam: Present: atraumatic, normocephalic, normal inspection Respiratory exam: Present: normal lung sounds bilaterally. Absent: respiratory distress, wheezes, rales, rhonchi, stridor Cardiovascular Exam: Present: regular rate, normal rhythm GI/Abdominal exam: Present: soft. Absent: distended, tenderness Rectal exam: Present: normal inspection Neurological exam: Present: alert, oriented X3, CN II-XII intact Psychiatric exam: Present: normal affect, normal mood Skin exam: Present: warm, dry, intact, normal color. Absent: rash Course Vital Signs 09/03/24 09/03/24 09/03/24 13:16 13:21 16:25 Temperature 98.0 F 98.5 F Pulse Rate 69 63 60 Respiratory 18 18 17 Rate Blood Pressure 129/71 124/68 127/56 O2 Sat by Pulse 94 L 97 96 Oximetry Medical Decision Making - Medical Decision Making This is a 69-year-old female who presents to the emergency department for rectal bleeding. Was pt. sent in by a medical professional or institution? @ -No Did you speak to anyone other than the patient for history? @ -No Did you review nursing and triage notes? @ -Yes, and I agree, it is accurate with regards to the patient's symptoms. Were old charts reviewed? @ -No Differential Diagnosis? @ -Differential GI Bleed: Esophageal varices, aortoenteric fistula, [place], gastritis, peptic ulcer disease, diverticulosis, inflammatory bowel disease, hemorrhoids, fissure, colitis, malignancy, Meckel's diverticulum, this is not meant to be an all- inclusive list. EKG interpreted by me (3pts min.)? @ -Not obtained X-rays interpreted by me (1pt min.)? @ -Not obtained CT interpreted by me (1pt min.)? @ -CT scan of the abdomen and pelvis obtained. My interpretation identifies no bowel wall thickening or free air. U/S interpreted by me (1pt. min.)? @ -Not obtained What testing was considered but not performed? (CT, X-rays, U/S, labs)? Why? @ -None What meds were considered but not given? Why? @ -None Did you discuss the management of the patient with other professionals? @ -No Did you reconcile home meds? @ -No Was smoking cessation discussed for >3mins.? @ -No Was critical care preformed (if so, how long)? @ -No Were there social determinants of health that impacted care today? How? (Homelessness, low income, unemployed, alcoholism, drug addiction, transp ortation, low edu. Level, literacy, decrease access to med. care, senior living, rehab)? @ -No Was there de-escalation of care discussed even if they declined? (Discuss DNR or withdrawal of care, Hospice)? @ -No What co-morbidities impacted this encounter? (DM, HTN, Smoking, COPD, CAD, Cancer, CVA, Hep., AIDS, mental health diagnosis, sleep apnea, morbid obesity)? @ -None Was patient admitted / discharged? @ -Discharged. Lab work demonstrates leukocytosis with a white blood cell count of 13.91. BUN elevated at 32 potentially suggestive of dehydration with the diarrhea. Lab work otherwise unremarkable. Hemoglobin within normal limits. CT scan of the abdomen and pelvis reveals no acute process. She has ch olelithiasis without signs of acute cholecystitis. Otherwise no abnormalities in the bowels were identified. On exam she had no active bleeding and her abdomen was soft and nontender. She did finish her last dose of the prednisone today. Advised she also avoid any other [id number] NSAIDs for the meantime and follow-up with her PCP for reevaluation. We did also discuss strict return parameters. Patient discharged home in stable condition. Case discussed with ED attending Dr. Shaw. Return precautions reviewed in depth, the patient is instructed to return to the emergency department with any new, worsening, or concerning symptoms. Patient verbalized understanding. Undiagnosed new problem with uncertain prognosis? @ -None Drug Therapy requiring intensive monitoring for toxicity (Heparin, Nitro, Insulin, Cardizem)? @ -None Were any procedures done? @ -None Diagnosis/symptom? @ -Rectal bleeding Acute, or Chronic, or Acute on Chronic? @ -Acute Uncomplicated (without systemic symptoms) or Complicated (systemic symptoms)? @ -Uncomplicated Side effects of treatment? @ -None Exacerbation, Progression, or Severe Exacerbation] @ -Not applicable Poses a threat to life or bodily function? @ -No - Lab Data Result diagrams: 09/03/24 14:44 09/03/24 14:44 Lab Results 09/03/24 09/03/24 09/03/24 Range/Units 14:35 14:44 14:44 WBC 13.91 H (4.50-10.00) 10*3/uL RBC 4.45 (4.10-5.20) 10*6/uL Hgb 13.2 (12.0-15.0) g/dL Hct 39.7 (37.2-46.3) % MCV 89.2 (80.0-97.0) fL MCH 29.7 (27.0-32.0) pg MCHC 33.2 (32.0-37.0) g/dL Plt Count 311 (140-440) 10*3/uL MPV 9.3 L (9.5-12.2) fL Immature Gran % (Auto) 0.5 % Neutrophils % 78.9 % Lymphocytes % 14.7 % Monocytes % 4.8 % Eosinophils % 0.7 % Basophils % 0.4 % Immature Gran # 0.07 H (0.00-0.04) 10*3/uL Neutrophils # 10.96 H (1.80-7.70) 10*3/uL Lymphocytes # 2.05 (0.90-5.00) 10*3/uL Monocytes # 0.67 (0.20-1.00) 10*3/uL Eosinophils # 0.10 (0.04-0.35) 10*3/uL Basophils # 0.06 (0.00-0.10) 10*3/uL PT 10.3 (10.0-12.5) sec INR 0.9 (<1.2) APTT 23.1 (22.0-30.0) sec Sodium (137-145) mmol/L Potassium (3.5-5.1) mmol/L Chloride (98-107) mmol/L Carbon Dioxide (22-30) mmol/L Anion Gap mmol/L BUN (7-17) mg/dL Creatinine (0.52-1.04) mg/dL Est GFR (CKD-EPI)AfAm (>60 ml/min/1.73 sqM) Est GFR (CKD-EPI)NonAf (>60 ml/min/1.73 sqM) Glucose (74-99) mg/dL Plasma Lactic Acid Triston (0.7-2.0) mmol/L Calcium (8.4-10.2) mg/dL Magnesium (1.6-2.3) mg/dL Total Bilirubin (0.2-1.3) mg/dL AST (14-36) U/L ALT (4-34) U/L Alkaline Phosphatase (38-126) U/L Troponin I (0.000-0.034) ng/mL Total Protein (6.3-8.2) g/dL Albumin (3.5-5.0) g/dL Blood Type O Positive Blood Type Confirm Blood Type Recheck No Previous Record Bld Type Recheck Status CABO Indicated Antibody Screen NEGATIVE Spec Expiration Date 09/06/2024234309/03/24 09/03/24 09/03/24 Range/Units 14:44 14:44 15:14 WBC (4.50-10.00) 10*3/uL RBC (4.10-5.20) 10*6/uL Hgb (12.0-15.0) g/dL Hct (37.2-46.3) % MCV (80.0-97.0) fL MCH (27.0-32.0) pg MCHC (32.0-37.0) g/dL Plt Count (140-440) 10*3/uL MPV (9.5-12.2) fL Immature Gran % (Auto) % Neutrophils % % Lymphocytes % % Monocytes % % Eosinophils % % Basophils % % Immature Gran # (0.00-0.04) 10*3/uL Neutrophils # (1.80-7.70) 10*3/uL Lymphocytes # (0.90-5.00) 10*3/uL Monocytes # (0.20-1.00) 10*3/uL Eosinophils # (0.04-0.35) 10*3/uL Basophils # (0.00-0.10) 10*3/uL PT (10.0-12.5) sec INR (<1.2) APTT (22.0-30.0) sec Sodium 139 (137-145) mmol/L Potassium 4.3 (3.5-5.1) mmol/L Chloride 105 (98-107) mmol/L Carbon Dioxide 22 (22-30) mmol/L Anion Gap 12 mmol/L BUN 32 H (7-17) mg/dL Creatinine 0.64 (0.52-1.04) mg/dL Est GFR (CKD-EPI)AfAm >90 (>60 ml/min/1.73 sqM) Est GFR (CKD-EPI)NonAf >90 (>60 ml/min/1.73 sqM) Glucose 116 H (74-99) mg/dL Plasma Lactic Acid Triston (0.7-2.0) mmol/L Calcium 9.7 (8.4-10.2) mg/dL Magnesium 2.0 (1.6-2.3) mg/dL Total Bilirubin 0.6 (0.2-1.3) mg/dL AST 23 (14-36) U/L ALT 23 (4-34) U/L Alkaline Phosphatase 101 (38-126) U/L Troponin I <0.012 (0.000-0.034) ng/mL Total Protein 7.6 (6.3-8.2) g/dL Albumin 4.6 (3.5-5.0) g/dL Blood Type Blood Type Confirm O Positive Blood Type Recheck Bld Type Recheck Status Antibody Screen Spec Expiration Date 09/03/24 Range/Units 15:37 WBC (4.50-10.00) 10*3/uL RBC (4.10-5.20) 10*6/uL Hgb (12.0-15.0) g/dL Hct (37.2-46.3) % MCV (80.0-97.0) fL MCH (27.0-32.0) pg MCHC (32.0-37.0) g/dL Plt Count (140-440) 10*3/uL MPV (9.5-12.2) fL Immature Gran % (Auto) % Neutrophils % % Lymphocytes % % Monocytes % % Eosinophils % % Basophils % % Immature Gran # (0.00-0.04) 10*3/uL Neutrophils # (1.80-7.70) 10*3/uL Lymphocytes # (0.90-5.00) 10*3/uL Monocytes # (0.20-1.00) 10*3/uL Eosinophils # (0.04-0.35) 10*3/uL Basophils # (0.00-0.10) 10*3/uL PT (10.0-12.5) sec INR (<1.2) APTT (22.0-30.0) sec Sodium (137-145) mmol/L Potassium (3.5-5.1) mmol/L Chloride (98-107) mmol/L Carbon Dioxide (22-30) mmol/L Anion Gap mmol/L BUN (7-17) mg/dL Creatinine (0.52-1.04) mg/dL Est GFR (CKD-EPI)AfAm (>60 ml/min/1.73 sqM) Est GFR (CKD-EPI)NonAf (>60 ml/min/1.73 sqM) Glucose (74-99) mg/dL Plasma Lactic Acid Triston 1.0 (0.7-2.0) mmol/L Calcium (8.4-10.2) mg/dL Magnesium (1.6-2.3) mg/dL Total Bilirubin (0.2-1.3) mg/dL AST (14-36) U/L ALT (4-34) U/L Alkaline Phosphatase (38-126) U/L Troponin I (0.000-0.034) ng/mL Total Protein (6.3-8.2) g/dL Albumin (3.5-5.0) g/dL Blood Type Blood Type Confirm Blood Type Recheck Bld Type Recheck Status Antibody Screen Spec Expiration Date - Radiology Data Radiology results: report reviewed, image reviewed Disposition Clinical Impression: Rectal bleeding, Diarrhea Disposition: HOME SELF-CARE Instructions (If sedation given, give patient instructions): Rectal Bleeding (ED) Additional Instructions: Return to the emergency department with any new, worsening, or concerning symptoms. Follow up with your primary care provider in 1-2 days. Is patient prescribed a controlled substance at d/c from ED?: No Referrals: Jose A Toussaint DO [Primary Care Provider] - 1-2 days Time of Disposition: 16:12
[2024-09-03 15:10] LABS: Basophils # (A) 0.06 10*3/uL (0.00-0.10); Basophils % (A) 0.4 %; Eosinophils # (A) 0.10 10*3/uL (0.04-0.35); Eosinophils % (A) 0.7 %; HCT 39.7 % (37.2-46.3); HGB 13.2 g/dL (12.0-15.0); Lymphocytes # (A) 2.05 10*3/uL (0.90-5.00); Lymphocytes % (A) 14.7 %; MCH 29.7 pg (27.0-32.0); MCHC 33.2 g/dL (32.0-37.0); MCV 89.2 fL (80.0-97.0); Monocytes # (A) 0.67 10*3/uL (0.20-1.00); Monocytes % (A) 4.8 %; Neutrophils # (A) 10.96 10*3/uL (1.80-7.70); Neutrophils % (A) 78.9 %; Platelet Count 311 10*3/uL (140-440); RBC 4.45 10*6/uL (4.10-5.20); RDW 13.3 % (11.5-14.5); WBC 13.91 10*3/uL (4.50-10.00)
[2024-09-03 15:21] LABS: INR 0.9 (<1.2); Partial Thromboplastin Time 23.1 sec (22.0-30.0); Prothrombin Time 10.3 sec (10.0-12.5)
[2024-09-03 15:24] LABS: ALT 23 U/L (4-34); AST 23 U/L (14-36); African American GFR (CKD) >90 (>60 ml/min/1.73 sqM); Albumin 4.6 g/dL (3.5-5.0); Alkaline Phosphatase 101 U/L (38-126); Anion Gap 12 mmol/L; Blood Urea Nitrogen 32 mg/dL (7-17); Calcium 9.7 mg/dL (8.4-10.2); Carbon Dioxide 22 mmol/L (22-30); Chloride 105 mmol/L (98-107); Glucose 116 mg/dL (74-99); Magnesium 2.0 mg/dL (1.6-2.3); Non-African American GFR(CKD) >90 (>60 ml/min/1.73 sqM); Potassium 4.3 mmol/L (3.5-5.1); Sodium 139 mmol/L (137-145); Total Protein 7.6 g/dL (6.3-8.2)
[2024-09-03] MEDS: SODIUM CHLORIDE 0.9% 500 ML 500 ML IV ONE (15:45)
--- NOTE | 2024-09-03 15:54 | CT ---
EXAMINATION TYPE: CT abdomen pelvis w con DATE OF EXAM: 09/03/2024 COMPARISON: 12/16/2017 CLINICAL INDICATION: Female, 69 years old with history of Rectal bleeding, abdominal cramping; PHH, P t c/o bloody diarrhea since yesterday. TECHNIQUE: Performed without Oral Contrast and with IV Contrast, patient injected with 100 ml mL of Isovue 300. CT DLP: 1084.[address] CTDI: mGy Automated exposure control for dose reduction was used. FINDINGS: The lung bases are clear. There are tiny gallstones but no gallbladder distention, wall thickening or pericholecystic fluid. Th ere is no biliary ductal dilatation. There is no focal mass or organomegaly involving the liver, pancreas, spleen or adrenal glands. There are 2 small liver cysts. There is no solid renal mass or hydronephrosis and there is homogeneous contrast enhancement of the r enal parenchyma. The caliber the abdominal aorta is normal is no retroperitoneal adenopathy or hemorr rolando. The bowel loops are normal in caliber and there is no evidence of dilatation or obstruction. No infla mmatory changes are identified in the bowel wall or mesentery. There is no free intraperitoneal air or fluid. No pelvic mass, free fluid, abscess or adenopathy. There are surgical absence of uterus. The osseous structures and soft tissues are intact. IMPRESSION: 1. Mild cholelithiasis without evidence of acute cholecystitis. 2. No acute changes within the abdomen or pelvis. [facility], , 09/03/2024 3:52 PM
[2024-09-03] MEDS: PANTOPRAZOLE 40 MG/10 ML VIAL IVP STA (16:06)
[2024-09-03 16:27] VITALS: BP 127/56; PULSE 60; RESP 17; TEMP 98.5
[2024-09-03] MEDS: DIPHENOX-ATROP STARTER PACK 8 TAB BTL PO STA (16:27)
== END 2024-09-03 16:31 | disposition home or self-care (01) ==
LOC: EC 13:10
DX: K92.1 Melena (principal); R19.7 Diarrhea, unspecified; Z87.891 Personal history of nicotine dependence
CPT/HCPCS: 36415; 86900; 86901; 80053; 83605; 83735; 84484; 85025; 85610; 85730; 86850; 74177; 99285; 96374; Q9967; J2470